=== PATIENT | male | born 1950 | race Caucasian/White ===

== ENCOUNTER 2022-04-25 06:56 | Day surgery (SDC) | payer MEDICARE, BC ==
[2022-04-25] MEDS ORDERED: Sodium Chloride 0.9% 10 ML Syringe FLUSH PRN (07:00)
[2022-04-25] MEDS: Lactated Ringers 1,000 ML IV SCH (07:13)
[2022-04-25] MEDS ORDERED: Propofol 200 MG/20 ML SDV ONE (08:07)
[2022-04-25] MEDS ORDERED: Midazolam 1 MG/ML 2 ML SDV ONE (08:07)
[2022-04-25] MEDS ORDERED: EPINEPHrine 1:10,000 1 MG/10 ML Syringe ONE (08:12)
== END 2022-04-25 09:54 | disposition home or self-care (01) ==
LOC: KA.SDS 06:56 → MERGE 09:00 → KA.SDS 09:54
PROVIDERS: ATTEND Family Medicine
DX: Z12.11 Encounter for screening for malignant neoplasm of colon (principal); D12.8 Benign neoplasm of rectum; K57.30 Diverticulosis of large intestine without perforation or abscess without bleeding; I10 Essential (primary) hypertension; E78.49 Other hyperlipidemia; I25.10 Atherosclerotic heart disease of native coronary artery without angina pectoris; F32.A Depression, unspecified; E78.5 Hyperlipidemia, unspecified; Z86.16 Personal history of COVID-19; Z86.010 Personal history of colon polyps; Z79.82 Long term (current) use of aspirin; Z79.899 Other long term (current) drug therapy; Z98.890 Other specified postprocedural states; Z87.891 Personal history of nicotine dependence
CPT/HCPCS: J2250; J2704; J7120